=== PATIENT | female | born 1955 | race Caucasian/White ===

== ENCOUNTER 2017-12-17 10:18 | Emergency (ER) | payer OTHER ==
[~2017-12-17] VITALS: Ht 157.5 cm; Wt 80.0 kg
[2017-12-17 11:33] LABS: HEMATOCRIT 41.8 % (36.0-46.0); HEMOGLOBIN 14.7 G/DL (11.9-15.5); MCHC 35.2 G/DL (30.0-36.0); MCV 85.3 FL (83-99); PLATELET COUNT 198 K/uL (156-360); RBC DIS.WIDTH-CV 13.4 % (11.8-14.6); RBC DIS.WIDTH-SD 41.7 % (39-53)
[2017-12-17 11:44] LABS: CHLORIDE 108 mEq/L (99-109); POTASSIUM 4.3 mEq/L (3.7-5.4); SODIUM 144 mEq/L (136-147)
[2017-12-17 11:46] LABS: GLUCOSE 94 mg/dL (70-99)
[2017-12-17 11:49] LABS: CREATININE 0.8 mg/dL (0.6-1.3); GFR ESTIMATE (CALCULATED) > 59 mL/min/
[2017-12-17 11:50] LABS: UREA NITROGEN (BUN) 14 mg/dL (9-23)
[2017-12-17 11:55] LABS: TROP-I INTERPRETATION NEGATIVE; TROPONIN-I < 0.01 ng/mL (0.0-0.30)
[2017-12-17 13:19] LABS: D-DIMER ELISA < 150.00 ng/mLDDU (<230)
[2017-12-17 13:53] LABS: TROP-I INTERPRETATION NEGATIVE; TROPONIN-I < 0.01 ng/mL (0.0-0.30)
[2017-12-17 14:19] VITALS: BP 136/83
== END 2017-12-17 14:34 | disposition home or self-care (01) ==
LOC: EME 10:18
PROVIDERS: Emergency Medicine
DX: R07.89 Other chest pain (principal); E78.5 Hyperlipidemia, unspecified
CPT/HCPCS: 71046; 80048; 84484; 85027; 85379; 93005; 99281; 99285

== ENCOUNTER 2017-12-25 12:14 | Day surgery (SDC) | payer OTHER ==
[2017-12-25] MEDS ORDERED: METOPROLOL SUCC50 MG PO (12:22)
[2017-12-25] MEDS ORDERED: LOVASTATIN20 MG PO (12:24)
[2017-12-25] MEDS ORDERED: NITROGLYCERIN0.4 MG SL (12:24)
[2017-12-25] MEDS ORDERED: ASPIRIN81 M2 PO (12:25)
[2017-12-25 18:04] LABS: HEMOGLOBIN 12.6 G/DL (11.9-15.5); MCH 29.6 PG (29.0-34.0); MCV 84.7 FL (83-99); PLATELET COUNT 206 K/uL (156-360); RBC DIS.WIDTH-CV 13.2 % (11.8-14.6); RBC DIS.WIDTH-SD 40.9 % (39-53); RED BLOOD COUNT 4.25 M/uL (3.80-5.20); WHITE BLOOD COUNT 8.4 K/uL (4.1-10.2)
[2017-12-25 19:45] VITALS: BP 122/86
[2017-12-25 20:47] LABS: BASOPHIL (%) 0.3 % (0-1); EOSINOPHIL (%) 0 % (0-5); HEMATOCRIT 38.5 % (36.0-46.0); HEMOGLOBIN 13.4 G/DL (11.9-15.5); IMMATURE GRANULOCYTE (%) 0.5 % (0.0-0.7); LYMPHOCYTE (%) 11.5 % (15-42); LYMPHOCYTE COUNT 1.1 K/uL (1.0-2.8); MCH 29.1 PG (29.0-34.0); MCHC 34.8 G/DL (30.0-36.0); MCV 83.5 FL (83-99); MONOCYTE (%) 2.4 % (3-12); MONOCYTE COUNT 0.2 K/uL (0-0.8); NEUTROPHIL (%) 85.3 % (45-76); NEUTROPHIL COUNT 8.1 K/uL (1.8-6.4); PLATELET COUNT 220 K/uL (156-360); RBC DIS.WIDTH-CV 13.3 % (11.8-14.6); RBC DIS.WIDTH-SD 40.9 % (39-53); RED BLOOD COUNT 4.61 M/uL (3.80-5.20); WHITE BLOOD COUNT 9.5 K/uL (4.1-10.2)
[2017-12-25 21:10] VITALS: BP 150/76
[2017-12-26 06:10] VITALS: BP 158/65
[2017-12-26 06:13] LABS: BASOPHIL (%) 0.2 % (0-1); EOSINOPHIL (%) 0.1 % (0-5); IMMATURE GRANULOCYTE (%) 0.3 % (0.0-0.7); LYMPHOCYTE (%) 14.3 % (15-42); LYMPHOCYTE COUNT 1.3 K/uL (1.0-2.8); MCH 29.1 PG (29.0-34.0); MCHC 34.3 G/DL (30.0-36.0); MONOCYTE (%) 7.1 % (3-12); MONOCYTE COUNT 0.7 K/uL (0-0.8); NEUTROPHIL COUNT 7.2 K/uL (1.8-6.4); PLATELET COUNT 208 K/uL (156-360); RBC DIS.WIDTH-CV 13.6 % (11.8-14.6); RBC DIS.WIDTH-SD 42.4 % (39-53); RED BLOOD COUNT 4.12 M/uL (3.80-5.20); WHITE BLOOD COUNT 9.2 K/uL (4.1-10.2)
[2017-12-26 06:32] LABS: CHLORIDE 108 MEQ/L (99-109); CREATININE 0.8 MG/DL (0.6-1.3); GFR ESTIMATE (CALCULATED) > 59 mL/min/; GLUCOSE 101 mg/dL (70-99); HDL CHOLESTEROL 42 MG/DL (Desirable>=50); LDL CHOLESTEROL 96 mg/dL (Desirable<100); NON-HDL CHOLESTEROL 123 mg/dL (Desirable<160); POTASSIUM 3.7 MEQ/L (3.7-5.4); SODIUM 138 MEQ/L (136-147); TOTAL CHOLESTEROL 165 mg/dL (Desirable<200); TRIGLYCERIDES 134 MG/DL (Normal: <150); UREA NITROGEN (BUN) 11 mg/dL (9-23)
[2017-12-26 08:46] VITALS: BP 130/75
[2017-12-26] MEDS ORDERED: ATORVASTATIN CA40 MG PO (11:05)
[2017-12-26] MEDS ORDERED: BRILINTA90 MG PO (11:05)
[2017-12-26] MEDS ORDERED: COZAAR25 MG PO (11:05)
[2017-12-26 11:23] LABS: HEMOGLOBIN A1c (GLYCOHEMOGLOB) 5.2 % (Below 5.7)
== END 2017-12-26 14:14 | disposition home or self-care (01) ==
LOC: CATH 12:14 → OPR 13:00 → CATH 13:30 → ENRESERV 13:40 → 2SOUTH 14:10 → 4EAST 14:10 → 2SOUTH 15:04 → ENRESERV 17:19 → 4EAST 19:34
PROVIDERS: Internal Medicine Cardiovascular Disease
DX: I25.110 Atherosclerotic heart disease of native coronary artery with unstable angina pectoris (principal); E78.2 Mixed hyperlipidemia; I10 Essential (primary) hypertension
CPT/HCPCS: 80048 91; 80061; 83036; 85025 91; 85027; 85347; 93005; C1725; C1769; C1874; C1887; C1894; G0378; J0360; J1644; J2250; J2405; J3010; J3246; J7030